=== PATIENT | female | born 1935 | race Caucasian/White ===

== ENCOUNTER → 2016-11-12 14:12 | Outpatient (CLI) | payer MEDICARE, OTHER ==
[2016-02-06 10:27] VITALS: BMI 24.8
[~2016-11-12 14:12] MED LIST: AZOPT 1% OPHT D10 ML RIGHT EYE; BENICAR HCT 40-1 TAB PO; CALCIUM 600 +1 EAC3 PO; ELIQUIS2.5 MG PO; ZANTAC300 MG PO
== END | disposition home or self-care (01) ==
LOC: D.MAMMO 11-06 15:15
DX: Z12.31 Encounter for screening mammogram for malignant neoplasm of breast (principal)

== ENCOUNTER → 2016-12-14 16:40 | Outpatient (CLI) | payer MEDICARE, OTHER ==
[2016-02-06 10:27] VITALS: BMI 24.8
== END | disposition home or self-care (01) ==
LOC: D.MAMMO 12-10 10:30 → D.US 12-10 11:30 → D.MAMMO 10:30
DX: R92.8 Other abnormal and inconclusive findings on diagnostic imaging of breast (principal)

== ENCOUNTER → 2019-12-18 09:25 | Outpatient (CLI) | payer MEDICARE, OTHER ==
[2016-02-06 10:27] VITALS: BMI 24.8
== END | disposition home or self-care (01) ==
LOC: D.RAD 09:25
PROVIDERS: ATTEND Internal Medicine Gastroenterology
DX: R19.4 Change in bowel habit (principal)

== ENCOUNTER → 2020-02-16 15:02 | Outpatient (CLI) | payer MEDICARE, OTHER ==
[2016-02-06 10:27] VITALS: BMI 24.8
== END | disposition home or self-care (01) ==
LOC: D.MRI 15:02
PROVIDERS: ATTEND Family Medicine
DX: M48.8X6 Other specified spondylopathies, lumbar region (principal)

== ENCOUNTER → 2020-10-23 15:11 | Outpatient (CLI) | payer MEDICARE, OTHER ==
[2016-02-06 10:27] VITALS: BMI 24.8
== END | disposition home or self-care (01) ==
LOC: D.MRI 15:11
PROVIDERS: ATTEND Family Medicine
DX: M48.8X6 Other specified spondylopathies, lumbar region (principal)